=== PATIENT | female | born 1995 | race Caucasian/White ===

== ENCOUNTER 2017-06-13 16:38 | Emergency (ER) | payer BC, OTHER ==
[~2017-06-13] VITALS: Ht 160 cm; Wt 51.8 kg
[~2017-06-13 16:38] MED LIST: ASPI1TAB93; FISH120014; IRON28TA PO; PREN29TA PO; TAB-TAB PO; VITA10002 PO; VITA400C28 PO; VITACAP32
[2017-06-13 16:56] VITALS: BP 110/61; PULSE 82; RESP 16; TEMP 98.1; O2SAT 99
[2017-06-13 17:39] LABS: BLOOD, URINE NEG (NEG); GLUCOSE,URINE NEG (NEG); KETONE, URINE NEG (NEG); NITRITE,URINE NEG (NEG)
[2017-06-13 17:50] LABS: COMMENT (UR) CULT NOT INDICATED; CULTURE IF INDICATED CULT NOT INDICATED; METHOD OF COLLECTION CLEAN CATCH; SQUAMOUS EPITHELIAL CELL URINE 0-5 /hpf (0-5); URINE COLOR YELLOW (YELLW/STRAW); WBC, URINE 0-2 /hpf (0-5)
--- NOTE | 2017-06-13 18:26 | PD ---
HPI Chief Complaint: Related Problem Time Seen by Provider: 18:23 Travel History International Travel<30 days: Yes Contact w/Intl Traveler<30days: [place] Traveled to: [facility] Traveled to known affect area: No History of Present Illness HPI Patient is a 22-year-old female at approximately 3-4 weeks gestational age by last menstrual period presents emergency department for evaluation of headaches and abdominal cramping. Patient states that she found out she was and has a history of headaches and went to her primary care physician to find out what she can take for headaches. She states that she wasn't actually having any headache at the time but just wanted to know. She also discussed with her primary care physician that she had been having intermittent pelvic pain for the past 4 weeks accompanied with some vaginal spotting. Her primary care physician referred her to the emergency department for further workup. Patient states currently she feels fine and does not have any abdominal cramping or headache. She states her first period ended in miscarriage and a blighted ovum. She states she did have some vaginal bleeding a few weeks ago which is since stopped, denies any vaginal discharge currently. Denies any nausea vomiting diarrhea constipation fevers PFSH Past Medical History Medical History: Denies Significant Hx Diminished Hearing: No Influenza Vaccination: No ?: LMP: 06/02/17 Miscarriage: 1 Past Surgical History Gynecologic Surgery: Yes (LEEP) Other Surgery: Yes (WISDOM TEETH) Social History Alcohol Use: No Tobacco Use: No Substance Use: No Allergies-Medications (Allergen,Severity, Reaction): Coded Allergies: No Known Allergies (Unverified , 06/13/17) Reported Meds & Prescriptions Reported Meds & Active Scripts Active Review of Systems Except as stated in HPI: all other systems reviewed are Neg Physical Exam Narrative GENERAL: Well-developed well-nourished no obvious distress. SKIN: Focused skin assessment warm/dry. HEAD: Atraumatic. Normocephalic. EYES: Pupils equal and round. No scleral icterus. No injection or drainage. ENT: No nasal bleeding or discharge. Mucous membranes pink and moist. NECK: Trachea midline. No JVD. CARDIOVASCULAR: Regular rate and rhythm. No murmur appreciated. RESPIRATORY: No accessory muscle use. Clear to auscultation. Breath sounds equal bilaterally. GASTROINTESTINAL: Abdomen soft, non-tender, nondistended. Hepatic and splenic margins not palpable. No rebound no percussive tenderness per GENITOURINARY: Slightly friable cervix, minimal discharge considered physiologic for . Grossly normal external genitalia, no bimanual tenderness no cervical motion tenderness. MUSCULOSKELETAL: No obvious deformities. No clubbing. No cyanosis. No edema. NEUROLOGICAL: Awake and alert. No obvious cranial nerve deficits. Motor grossly within normal limits. Normal speech. PSYCHIATRIC: Appropriate mood and affect; insight and judgment normal. Data Data Last Documented VS Vital Signs Date Time Temp Pulse Resp B/P Pulse Ox O2 Delivery O2 Flow Rate FiO2 06/13/17 20:37 99 06/13/17 20:16 73 16 98/54 Room Air 06/13/17 16:56 98.1 Orders Urinalysis - C+S If Indicated (06/13/17 16:53) Ed Urine Pregnancytest Poc (06/13/17 16:53) Basic Metabolic Panel (Bmp) (06/13/17 18:23) Beta Hcg (Quant/Titer) (06/13/17 18:23) Complete Blood Count With Diff (06/13/17 18:23) Iv Access Insert/Monitor (06/13/17 18:23) Ecg Monitoring (06/13/17 18:23) Oximetry (06/13/17 18:23) Sodium Chloride 0.9% Flush (Ns Flush) (06/13/17 18:30) Abo/Rh Blood Type (06/13/17 18:23) Gc And Chlamydia Pcr (06/13/17 18:23) Wet Prep Profile (06/13/17 18:23) Us Pelvis (Ques Pr/Ect)W Trans (06/13/17 ) Labs Laboratory Tests Test 06/13/17 06/13/17 06/13/17 17:30 18:40 19:00 Urine Collection Type CLEAN CATCH Urine Color YELLOW Urine Turbidity CLEAR Urine pH 6.0 Urine Specific [place] 1.007 Urine Protein NEG mg/dL Urine Glucose (UA) NEG mg/dL Urine Ketones NEG mg/dL Urine Occult Blood NEG Urine Nitrite NEG Urine Bilirubin NEG Urine Leukocyte Esterase NEG Urine WBC 0-2 /hpf Urine Squamous Epithelial 0-5 /hpf Cells Microscopic Urinalysis Comment CULT NOT INDICATED Urine Collection Time 17:30 White Blood Count 5.6 TH/MM3 Red Blood Count 4.07 MIL/MM3 Hemoglobin 12.2 GM/DL Hematocrit 35.9 % Mean Corpuscular Volume 88.2 FL Mean Corpuscular Hemoglobin 29.8 PG Mean Corpuscular Hemoglobin 33.8 % Concent Red Cell Distribution Width 12.9 % Platelet Count 207 TH/MM3 Mean Platelet Volume 8.7 FL Neutrophils (%) (Auto) 65.9 % Lymphocytes (%) (Auto) 24.8 % Monocytes (%) (Auto) 7.1 % Eosinophils (%) (Auto) 0.9 % Basophils (%) (Auto) 1.3 % Neutrophils # (Auto) 3.6 TH/MM3 Lymphocytes # (Auto) 1.4 TH/MM3 Monocytes # (Auto) 0.4 TH/MM3 Eosinophils # (Auto) 0.1 TH/MM3 Basophils # (Auto) 0.1 TH/MM3 CBC Comment DIFF FINAL Differential Comment Sodium Level 140 MEQ/L Potassium Level 3.7 MEQ/L Chloride Level 106 MEQ/L Carbon Dioxide Level 27.0 MEQ/L Anion Gap 7 MEQ/L Blood Urea Nitrogen 8 MG/DL Creatinine 0.59 MG/DL Estimat Glomerular Filtration 125 ML/MIN Rate Random Glucose 104 MG/DL Calcium Level 7.8 MG/DL Human Chorionic Gonadotropin, [address] MIU/ML Quant Blood Type O POSITIVE Blood Bank Comment Clue Cells (Wet Prep) PRESENT Vaginal Trichomonas (Wet Prep) NONE SEEN Vaginal Yeast (Wet Prep) NONE SEEN Chlamydia trachomatis DNA NOT DETECTED (PCR) Neisseria gonorrhoeae DNA NOT DETECTED (PCR) MDM Medical Decision Making Medical Screen Exam Complete: Yes Emergency Medical Condition: Yes Differential Diagnosis Ectopic , preeclampsia highly unlikely, acute life-threatening headache unlikely, acute abdomen unlikely, vaginal spotting in , GC, CT , BV. Narrative Course Patient roomed emergency department, pelvic exam was performed with female nurse organ assembler present at all times, workup initiated, patient not currently having any symptoms. Discussed with Dr. Mancini concerns for possible ectopic . Patient care was transferred to at 1900 shift change. Follow-up basic labs and disposition appropriate. Angelo Olmos MD Jun 13, 2017 18:25
[2017-06-13] MEDS ORDERED: SODIUM CHLORIDE 0.9% FLUSH 10 ML FLUSH IV FLUSH PRN (18:30)
[2017-06-13 18:48] LABS: AUTOMATED NEUTROPHIL # 3.6 TH/MM3 (1.8-7.7); BASOPHIL # 0.1 TH/MM3 (0-0.2); BASOPHIL % 1.3 % (0.0-2.0); EOSINOPHIL # 0.1 TH/MM3 (0-0.4); EOSINOPHIL % 0.9 % (0.0-4.0); HEMATOCRIT 35.9 % (35.0-46.0); HEMO FLAGS DIFF FINAL; LYMPH % 24.8 % (9.0-44.0); LYMPHOCYTE # 1.4 TH/MM3 (1.0-4.8); MEAN CELL VOLUME 88.2 FL (80.0-100.0); MEAN CORPUSCULAR HEMOGLOBIN 29.8 PG (27.0-34.0); MEAN CORPUSCULAR HGB CONC 33.8 % (32.0-36.0); MONO % 7.1 % (0.0-8.0); NEUT % 65.9 % (16.0-70.0); PLATELET COUNT 207 TH/MM3 (150-450); RED BLOOD COUNT 4.07 MIL/MM3 (4.00-5.30); RED CELL DISTRIBUTION WIDTH 12.9 % (11.6-17.2); WHITE BLOOD COUNT 5.6 TH/MM3 (4.0-11.0)
[2017-06-13 19:08] LABS: POTASSIUM 3.7 MEQ/L (3.5-5.1)
[2017-06-13 19:14] VITALS: BP 105/71; PULSE 85; RESP 16; O2SAT 100
--- NOTE | 2017-06-13 20:09 | RADRPT ---
EXAM DATE/TIME: 06/13/2017 19:38 [place] COMPARISON: US PELVIS (QUEST PREG/ECTOPIC), May 10, 2015, 19:20. INDICATIONS : Ectopic. Bleeding. LAB(S): Beta-hC MEDICAL HISTORY : . Chlamydia. Anxiety. Blighted ovum. SURGICAL HISTORY : LEEP. [place] teeth removed ENCOUNTER: Initial ACUITY: 1 day PAIN SCORE: 0/10 LOCATION: Bilateral pelvis MEASUREMENTS: UTERUS: 7.6 x 5.9 x 5.1 cm ENDOMETRIAL STRIPE: 8 mm RIGHT OVARY: 3.5 x 1.5 x 1.6 cm LEFT OVARY: 3.7 x 3.1 x 2.0 cm FREE FLUID: Yes CROWN RUMP LENGTH: not seen FHR: not seen FINDINGS: There is a gestational sac within the uterus containing a healed sac. A pole is not seen. Based on mean sac diameter estimated gestational age of 5 weeks 6 days identified. The right ovary is norm al. The left ovary contains a 1.2 cm cyst, possibly a corpus luteum cyst. There is no blood flow with in this on color Doppler imaging. There is trace free fluid cul-de-sac. CONCLUSION: There's a gestational sac within the uterus containing a yolk sac however a pole is not seen. I t may be too early at this time and followup is recommended. Hakan Reed MD on June 13, 2017 at 20:05 Board Certified Radiologist. This report was verified electronically.
[2017-06-13 20:16] VITALS: BP 98/54; PULSE 73; RESP 16; O2SAT 100
--- NOTE | 2017-06-13 20:32 | PD ---
Data Data Last Documented VS Vital Signs Date Time Temp Pulse Resp B/P Pulse Ox O2 Delivery O2 Flow Rate FiO2 06/13/17 20:16 73 16 98/54 100 Room Air 06/13/17 16:56 98.1 Orders Urinalysis - C+S If Indicated (06/13/17 16:53) Ed Urine Pregnancytest Poc (06/13/17 16:53) Basic Metabolic Panel (Bmp) (06/13/17 18:23) Beta Hcg (Quant/Titer) (06/13/17 18:23) Complete Blood Count With Diff (06/13/17 18:23) Iv Access Insert/Monitor (06/13/17 18:23) Ecg Monitoring (06/13/17 18:23) Oximetry (06/13/17 18:23) Sodium Chloride 0.9% Flush (Ns Flush) (06/13/17 18:30) Abo/Rh Blood Type (06/13/17 18:23) Gc And Chlamydia Pcr (06/13/17 18:23) Wet Prep Profile (06/13/17 18:23) Us Pelvis (Ques Pr/Ect)W Trans (06/13/17 ) Labs Laboratory Tests Test 06/13/17 06/13/17 06/13/17 17:30 18:40 19:00 Urine Collection Type CLEAN CATCH Urine Color YELLOW Urine Turbidity CLEAR Urine pH 6.0 Urine Specific [place] 1.007 Urine Protein NEG mg/dL Urine Glucose (UA) NEG mg/dL Urine Ketones NEG mg/dL Urine Occult Blood NEG Urine Nitrite NEG Urine Bilirubin NEG Urine Leukocyte Esterase NEG Urine WBC 0-2 /hpf Urine Squamous Epithelial 0-5 /hpf Cells Microscopic Urinalysis Comment CULT NOT INDICATED Urine Collection Time 17:30 White Blood Count 5.6 TH/MM3 Red Blood Count 4.07 MIL/MM3 Hemoglobin 12.2 GM/DL Hematocrit 35.9 % Mean Corpuscular Volume 88.2 FL Mean Corpuscular Hemoglobin 29.8 PG Mean Corpuscular Hemoglobin 33.8 % Concent Red Cell Distribution Width 12.9 % Platelet Count 207 TH/MM3 Mean Platelet Volume 8.7 FL Neutrophils (%) (Auto) 65.9 % Lymphocytes (%) (Auto) 24.8 % Monocytes (%) (Auto) 7.1 % Eosinophils (%) (Auto) 0.9 % Basophils (%) (Auto) 1.3 % Neutrophils # (Auto) 3.6 TH/MM3 Lymphocytes # (Auto) 1.4 TH/MM3 Monocytes # (Auto) 0.4 TH/MM3 Eosinophils # (Auto) 0.1 TH/MM3 Basophils # (Auto) 0.1 TH/MM3 CBC Comment DIFF FINAL Differential Comment Sodium Level 140 MEQ/L Potassium Level 3.7 MEQ/L Chloride Level 106 MEQ/L Carbon Dioxide Level 27.0 MEQ/L Anion Gap 7 MEQ/L Blood Urea Nitrogen 8 MG/DL Creatinine 0.59 MG/DL Estimat Glomerular Filtration 125 ML/MIN Rate Random Glucose 104 MG/DL Calcium Level 7.8 MG/DL Human Chorionic Gonadotropin, [address] MIU/ML Quant Blood Type O POSITIVE Blood Bank Comment Clue Cells (Wet Prep) PRESENT Vaginal Trichomonas (Wet Prep) NONE SEEN Vaginal Yeast (Wet Prep) NONE SEEN MDM Supervised Visit with PAGE: Yes Narrative Course To 22 year-old woman with early who presents to the ED with some abdominal pain and headache. Patient was initially seen by Dr. Olmos been signed out to me to follow-up on the results of ultrasound and diagnostic testing. Studies show: CBC is unremarkable. CMP is unremarkable. HCG is 30,000 UA is negative. Wet prep is positive for clue cells. GC chlamydia is pending. Ultrasound shows gestational sac within the uterus containing a yolk sac without pole. FINAL: 22 old woman, has IUP excluding ectopic. No pole is seen. She did a blighted ovum before. She is not having other symptoms to suggest BV. Recommend outpatient follow-up with her OB. Diagnosis Primary Impression: Abdominal pain during intrauterine Referrals: Krystal Vargas MD (PCP) call for appointment Patient Instructions: General Instructions Departure Forms: Tests/Procedures Additional Instruction: Follow-up with your primary doctor in the next 2-4 days. Return to the emergency department for any worsening pain, bleeding, or any other new or worsening symptoms. Med/Other Pt SpecificInfo: No Change to Meds Disposition: 01 DISCHARGE HOME Condition: Stable Berny Mancini MD Jun 13, 2017 20:32
[2017-06-14 03:51] LABS: CHLAMYDIA PCR NOT DETECTED (NOT DETECT); NEISSERIA PCR NOT DETECTED (NOT DETECT)
== END 2017-06-13 21:16 | disposition home or self-care (01) ==
LOC: PHED 16:38
DX: O26.91 Pregnancy related conditions, unspecified, first trimester (principal); R10.9 Unspecified abdominal pain; Z3A.01 Less than 8 weeks gestation of pregnancy
CPT/HCPCS: 76700; 76817; 80048; 81001; 84702; 84703; 85025; 86900; 86901; 87210; 87491; 87591; 99284

== ENCOUNTER 2018-01-25 04:53 | Emergency (ER) | payer BC ==
--- NOTE | 2018-01-25 08:01 | PD ---
HPI Chief Complaint leak of fluid Date Seen: Jan 25, 2018 Time Seen: 07:54 Travel History International Travel<30 Days: No Contact w/Intl Traveler<30Days: No Known Affected Area: No History of Present Illness HPI pt. is a @ 38 weeks present w/ c/o loss of fluid. pt. states had fluid from vagina ~0000. pt. states had on pad was wet. +FM, no vb, irreg ctxs. Para: 0 : 2 History Past Medical History Medical History: Denies Significant Hx Past Surgical History Surgical History: No Previous Surgery Social History Alcohol Use: No Tobacco Use: No Substance Abuse: No Allergies-Medications (Allergen,Severity, Reaction): Coded Allergies: No Known Allergies (Unverified , 06/13/17) Review of Systems Except as stated in HPI: all other systems reviewed are Neg Physical Exam Narrative GENERAL: Well-nourished, well-developed patient. SKIN: Warm and dry. HEAD: Normocephalic and atraumatic. EYES: No scleral icterus. No injection or drainage. ENT: No nasal drainage noted. Mucous membranes pink. Airway patent. NECK: Supple, trachea midline. No JVD. CARDIOVASCULAR: Regular rate and rhythm without murmurs, gallops, or rubs. RESPIRATORY: Breath sounds equal bilaterally. No accessory muscle use. ABDOMEN/GI: Abdomen soft, non-tender, bowel sounds present, no rebound, no guarding Gravid GENITOURINARY: amniosure - FHT's: Category: 1 Reactive: + Variability: mod Decels: [none EXTREMITIES: No cyanosis or edema. BACK: Nontender without obvious deformity. No CVA tenderness. NEUROLOGICAL: Awake and alert. Motor and sensory grossly within normal limits. Five out of 5 muscle strength in all muscle groups. Normal speech. Data Data Vital Signs Reviewed: Yes [facility] Medical Record Reviewed: Yes Plan pt. w/o srom. pt. have bedside kevin=13. pt. to be d/c to home. given precautions for return. all ? answered. f/u w/ dr. darnell as scheduled. Diagnosis Diagnosis: Primary Impression: Leakage of amniotic fluid Additional Impression: 38 weeks gestation of Disposition: 01 DISCHARGE HOME Patient Instructions: General Instructions Additional Instructions: please return to ob ed for any concerns about self or baby, if you dont feel baby move or bright red vag bleeding, or water breaks. may call [phone] Departure Forms: Tests/Procedures Zbigniew Ellis Jr., MD Jan 25, 2018 08:01
[2018-01-26] MEDS ORDERED: PREN1TAB45 PO ×2 (21:40)
[2018-01-26] MEDS ORDERED: FERR325T18 PO ×2 (21:40)
[2018-01-26] MEDS ORDERED: COLA100C5 PO ×2 (21:40)
[2018-01-26] MEDS ORDERED: FAMO1TAB73 PO ×2 (21:40)
== END 2018-01-25 08:20 | disposition home or self-care (01) ==
LOC: HOBED 04:53
DX: O42.92 Full-term premature rupture of membranes, unspecified as to length of time between rupture and onset of labor (principal); Z3A.38 38 weeks gestation of pregnancy
CPT/HCPCS: 76815; 84112

== ENCOUNTER 2018-01-26 20:10 | Inpatient (IN) | payer BC ==
[~2018-01-26] VITALS: Ht 160 cm; Wt 64.4 kg
[2018-01-26] MEDS ORDERED: LACTATED RINGER'S 1000 ML INJ 1,000 ML IV PRN (21:10)
--- NOTE | 2018-01-26 21:10 | HHI.HP ---
HPI Chief Complaint Contractions Date Seen: Jan 26, 2018 Time Seen: 21:05 Travel History International Travel<30 Days: No Contact w/Intl Traveler<30Days: No Known Affected Area: No History of Present Illness HPI 22-year-old white female at [address] Avalos care presents complaining of contractions through the day. These contractions are painful and regular every 5 minutes heart rate tracing is reactive there is no bleeding or leakage of fluid. Weeks Gestation: 38 Para: 0 : 2 Miscarriage: 1 History Obstetric History Obstetric History 1 early loss Social History Alcohol Use: No Tobacco Use: No Substance Abuse: No Allergies-Medications (Allergen,Severity, Reaction): Coded Allergies: No Known Allergies (Unverified , 06/13/17) Review of Systems General / Constitutional: No: Fever, Weight Gain, Chills, Other Eyes: No: Diploplia, Blurred Vision, Visual changes, Pain, Photophobia HENT: No: Headaches, Vertigo, Lightheadedness Cardiovascular: No: Irregular Rhythm, Chest Pain or Discomfort, Palpitations, Tachycardia, Syncope, Varicosities, Edema, Cyanosis Respiratory: No: Cough, Short of Breath, Other Gastrointestinal: Abdominal Pain, No: Nausea, Vomiting, Diarrhea Genitourinary: No: Decreased Urinary Output, Oliguria Musculoskeletal: No: Limited ROM, Weakness, Cramping, Edema, Pain Skin: No Rash, No Itching, No Dryness, No Lumps, No Change in Pigmentation, No Change in Nails, No Alopecia, No Lesions Neurologic: No: Weakness, Dizziness, Syncope, Focal Abnormalities, Coordination Problem, Headache, Slurred Speech, Seizures Psychiatric: No: Depression, Suicidal Ideations, Homicidal Ideation Endocrine: No: Heat Intolerance, Cold Intolerance, Polydipsia, Polyuria, Other Physical Exam Narrative GENERAL: Well-nourished, well-developed patient. SKIN: Warm and dry. HEAD: Normocephalic and atraumatic. EYES: No scleral icterus. No injection or drainage. ENT: No nasal drainage noted. Mucous membranes pink. Airway patent. NECK: Supple, trachea midline. No JVD. CARDIOVASCULAR: Regular rate and rhythm without murmurs, gallops, or rubs. RESPIRATORY: Breath sounds equal bilaterally. No accessory muscle use. BREASTS: Bilateral exam showed no masses , no retractions, no nipple discharge. ABDOMEN/GI: Abdomen soft, non-tender, bowel sounds present, no rebound, no guarding Gravid to [38-] weeks size Fundal Height: [-38] GENITOURINARY: External Genitalia: intact and normal in appearance BUS glands: [-] Cervix: [-] Dilatation: [7-] Effacement: [90-] Station: [0] Presentation: [vtx-] Membranes: [intact BBOW] Uterine Contractions: [q 5 min-] FHT's: Category: [-1] Baseline: [133-] Reactive: [-R] Variability: [mod-] Decels: none[-] EXTREMITIES: No cyanosis or edema. BACK: Nontender without obvious deformity. No CVA tenderness. NEUROLOGICAL: Awake and alert. Motor and sensory grossly within normal limits. Five out of 5 muscle strength in all muscle groups. Normal speech. Caprini VTE Risk Assessment Caprini VTE Risk Assessment: No/Low Risk (score <= 1) Caprini Risk Assessment Model Point Value = 1 Point Value = 2 Point Value = 3 Point Value = 5 Age 41-60 Minor surgery BMI > 25 kg/m2 Swollen legs Varicose veins or History of unexplained or recurrent spontaneous Oral contraceptives or hormone replacement Sepsis (< 1 month) Serious lung disease, including pneumonia (< 1 month) Abnormal pulmonary function Acute myocardial infarction Congestive heart failure (< 1 month) History of inflammatory bowel disease Medical patient at bed rest Age 61-74 Arthroscopic surgery Major open surgery (> 45 min) Laparoscopic surgery (> 45 min) Malignancy Confined to bed (> 72 hours) Immobilizing plaster cast Central venous access Age >= 75 History of VTE Family history of VTE Factor V Leiden Prothrombin [id number] Lupus anticoagulant Anticardiolipin antibodies Elevated serum homocysteine Heparin-induced thrombocytopenia Other congenital or acquired thrombophilia Stroke (< 1 month) Elective arthroplasty Hip, pelvis, or leg fracture Acute spinal cord injury (< 1 month) Prophylaxis Regimen Total Risk Factor Score Risk Level Prophylaxis Regimen 0-1 Low Early ambulation 2 Moderate Order ONE of the following: *Sequential Compression Device (SCD) *Heparin 5000 units SQ BID 3-4 Higher Order ONE of the following medications: *Heparin 5000 units SQ TID *Enoxaparin/Lovenox 40 mg SQ daily (WT < 150 kg, CrCl > 30 mL/min) *Enoxaparin/Lovenox 30 mg SQ daily (WT < 150 kg, CrCl > 10-29 mL/min) *Enoxaparin/Lovenox 30 mg SQ BID (WT < 150 kg, CrCl > 30 mL/min) AND/OR *Sequential Compression Device (SCD) 5 or more Highest Order ONE of the following medications: *Heparin 5000 units SQ TID (Preferred with Epidurals) *Enoxaparin/Lovenox 40 mg SQ daily (WT < 150 kg, CrCl > 30 mL/min) *Enoxaparin/Lovenox 30 mg SQ daily (WT < 150 kg, CrCl > 10-29 mL/min) *Enoxaparin/Lovenox 30 mg SQ BID (WT < 150 kg, CrCl > 30 mL/min) AND *Sequential Compression Device (SCD) Assessment/Plan Assessment and Plan Patient is 22-year-old white female at [address] Avalos care presents complaining of regular contractions. Cervix is 7 cm/90%/0 station Impression-active labor at 38 weeks Plan-admit to labor and delivery, managed labor, anticipate vaginal delivery, discussed with the Dr. Aparicio covering physician Aiden Siu II, MD Jan 26, 2018 21:10
[2018-01-26] MEDS ORDERED: CITRIC ACID-SODIUM CITRATE LIQ 30 ML UDC PO SCH (21:15)
[2018-01-26] MEDS ORDERED: MINERAL OIL 10 ML VIAL TOPICAL PRN (21:15)
[2018-01-26] MEDS ORDERED: SODIUM CHLORID 0.9% 500 ML INJ 500 ML IV PRN (21:15)
[2018-01-26] MEDS ORDERED: LIDOCAINE HCL 1% 50 ML VIAL INFIL PRN (21:15)
[2018-01-26] MEDS ORDERED: OXYTOCIN 30 UNITS-500ML PREMIX 500 ML IV ONE (21:15)
[2018-01-26] MEDS ORDERED: LIDOCAINE HCL 1% 50 ML VIAL I-DERMAL PRN (21:15)
[2018-01-26] MEDS ORDERED: SODIUM CHLOR 0.9% 1000 ML INJ 1,000 ML IV PRN (21:30)
[2018-01-26 21:39] LABS: AUTOMATED NEUTROPHIL # 9.9 TH/MM3 (1.8-7.7); BASOPHIL % 0.2 % (0.0-2.0); EOSINOPHIL % 0.1 % (0.0-4.0); HEMATOCRIT 37.1 % (35.0-46.0); HEMOGLOBIN 13.3 GM/DL (11.6-15.3); LYMPH % 7.9 % (9.0-44.0); LYMPHOCYTE # 0.9 TH/MM3 (1.0-4.8); MEAN CELL VOLUME 92.1 FL (80.0-100.0); MEAN CORPUSCULAR HGB CONC 35.8 % (32.0-36.0); MEAN PLATELET VOLUME 9.6 FL (7.0-11.0); MONOCYTE # 0.6 TH/MM3 (0-0.9); NEUT % 86.8 % (16.0-70.0); PLATELET COUNT 157 TH/MM3 (150-450); RED BLOOD COUNT 4.02 MIL/MM3 (4.00-5.30); RED CELL DISTRIBUTION WIDTH 14.6 % (11.6-17.2); WHITE BLOOD COUNT 11.5 TH/MM3 (4.0-11.0)
[2018-01-26] MEDS ORDERED: FAMO1TAB73 PO ×2 (21:40)
[2018-01-26] MEDS ORDERED: FERR325T18 PO ×2 (21:40)
[2018-01-26] MEDS ORDERED: PREN1TAB45 PO ×2 (21:40)
[2018-01-26] MEDS ORDERED: COLA100C5 PO ×2 (21:40)
[2018-01-26 21:41] LABS: BILIRUBIN, URINE NEG (NEG); BLOOD, URINE SMALL (NEG); GLUCOSE,URINE NEG (NEG); KETONE, URINE 10 mg/dL (NEG); MUCUS URINE FEW /lpf (OCC); NITRITE,URINE NEG (NEG); SQUAMOUS EPITHELIAL CELL URINE 2 /hpf (0-5); URINE COLOR YELLOW (YELLW/STRAW); URINE LEUKOCYTE ESTERASE MOD (NEG)
[2018-01-26] MEDS: LACTATED RINGER'S 1000 ML INJ 1,000 ML IV SCH (21:53)
[2018-01-26] MEDS ORDERED: ALUMINUM/MAGNESIUM/SIMETH 30 ML CUP PO PRN (22:30)
[2018-01-26] MEDS ORDERED: LIDOCAINE HCL 1% 20 ML VIAL ONE (22:51)
[2018-01-27] VITALS (7 sets, daily range): BP systolic 90–131; BP diastolic 47–103; PULSE 97–126; RESP 17–18; TEMP 98.5
[2018-01-27] MEDS ORDERED: WITCH HAZEL 50%/GLYCERIN 12.5% 40 PAD JAR TOPICAL PRN (01:15)
[2018-01-27] MEDS ORDERED: DOCUSATE SODIUM 50 MG/SENNA 8.6 MG TAB PO PRN (01:15)
[2018-01-27] MEDS ORDERED: ALUMINUM/MAGNESIUM/SIMETH 30 ML CUP PO PRN (01:15)
[2018-01-27] MEDS ORDERED: BENZOCAINE 20% TOPICAL SPRAY 60 ML CAN TOPICAL PRN (01:15)
[2018-01-27] MEDS ORDERED: OXYTOCIN 10 UNIT/ML AMP XX PRN (01:15)
[2018-01-27] MEDS ORDERED: ZOLPIDEM TARTRATE 5 MG TAB PO PRN (01:15)
[2018-01-27] MEDS ORDERED: OXYTOCIN 30 UNITS-500ML PREMIX 500 ML IV SCH (01:15)
[2018-01-27] MEDS ORDERED: ONDANSETRON ODT 4 MG TAB PO PRN (01:15)
[2018-01-27] MEDS ORDERED: ACETAMINOPHEN 325 MG TAB PO PRN (01:15)
[2018-01-27] MEDS ORDERED: SODIUM CHLORIDE 0.9% FLUSH 10 ML FLUSH IV FLUSH PRN (01:15)
--- NOTE | 2018-01-27 01:17 | PD.OB.DELI ---
Weeks gestation: 38 Gest age assessed date: Jan 26, 2018 Gest age assessed time: 20:00 Pt started active labor?: Yes Active labor start date: Jan 26, 2018 Active labor start time: 17:00 Medical induction of labor?: No Artificial rupture of membrane: Yes Artificial ROM date: Jan 26, 2018 Artifical ROM time: 19:20 Anesthesia: None Episiotomy: None Vaginal Delivery: Normal Presentation: Occiput anterior Nuchal Cord: None Delayed cord clamping (45 sec): Yes : Female Delivery date: Jan 27, 2018 Delivery time: 00:51 One Minute : 8 Five Minute : 9 Weight: 2965 Placenta: Spontaneous delivery Laceration: Vaginal laceration, 2 deg Repair: Vicryl running (layered closure, 3-0,2-0) Estimated blood loss: 250cc Berny Aparicio MD Jan 27, 2018 01:17
[2018-01-27] MEDS: SODIUM CHLORIDE 0.9% FLUSH 10 ML FLUSH IV FLUSH SCH ×2 (01:38→09:21)
[2018-01-27] MEDS: IBUPROFEN 800 MG TAB PO PRN ×3 (01:43→17:33)
[2018-01-27] MEDS ORDERED: INFLUENZA VIRUS VACCINE (QUADRIVALENT) 0.5 ML SYR IM ONE (10:00)
[2018-01-27] MEDS: LACTATED RINGER'S 1000 ML INJ 1,000 ML IV SCH (11:58)
--- NOTE | 2018-01-27 12:26 | HHI.OB ---
Subjective Post Day: 1 Remarks PPD#1, ,attempting to breast feed. Stable Objective Vitals/I&O Vital Signs Date Time Temp Pulse Resp B/P (MAP) Pulse Ox O2 Delivery O2 Flow Rate FiO2 01/27/18 02:00 103 115/87 (96) 01/27/18 01:45 97 105/64 (78) 01/27/18 01:42 98.5 01/27/18 01:41 17 01/27/18 01:31 126 90/47 (61) 01/27/18 01:16 97 112/71 (85) 01/27/18 01:00 108 18 131/103 (112) Objective Remarks GENERAL: Well-nourished, well-developed patient. CARDIOVASCULAR: Regular rate and rhythm without murmurs, gallops, or rubs. RESPIRATORY: Breath sounds equal bilaterally. No accessory muscle use. ABDOMEN/GI: Abdomen soft, non-tender. Fundus: Firm, non-tender at umbilicus. GENITOURINARY: Light to moderate bleeding. EXTREMITIES: No cyanosis or edema, non-tender, without signs of DVT. Medications and IVs Current Medications Medications (Trade) Dose Ordered Sig/Juancho Route Start Time Stop Time Status Last Admin Lactated Ringer's 1,000 ml @ 125 mls/hr Q8H IV 01/26/18 21:10 01/26/18 21:53 Lactated Ringer's 1,000 ml @ 3,000 mls/hr Q20M PRN IV 01/26/18 21:10 Sodium Chloride 1,000 ml @ 100 mls/hr Q10H PRN IV 01/26/18 21:30 (Xylocaine 1% Inj (50 ml)) 0.1 ml UNSCH X1 PRN I-DERMAL 01/26/18 21:15 01/29/18 21:14 (Bicitra Liq) 30 ml HOTEL VALET ATTENDANT PO 01/26/18 21:15 01/30/18 21:14 (fentaNYL INJ) 50 mcg Q1H PRN IV PUSH 01/26/18 21:15 (fentaNYL INJ) 100 mcg Q1H PRN IV PUSH 01/26/18 21:15 (Xylocaine 1% Inj (50 ml)) 10 ml UNSCH X1 PRN INFIL 01/26/18 21:15 01/28/18 21:14 (Muri-Lube Oil) 10 ml UNSCH PRN TOPICAL 01/26/18 21:15 (Mag-Al Plus Susp Liq) 30 ml Q6H PRN PO 01/26/18 22:30 01/26/18 22:24 (Pitocin Inj) 20 units UNSCH X1 PRN XX 01/27/18 01:15 01/28/18 01:14 (NS Flush) 2 ml BID IV FLUSH 01/27/18 01:15 01/27/18 01:38 (NS Flush) 2 ml UNSCH PRN IV FLUSH 01/27/18 01:15 (Tylenol) 650 mg Q4H PRN PO 01/27/18 01:15 (Motrin) 800 mg Q8H PRN PO 01/27/18 01:15 01/27/18 09:22 (Americaine 20% Top Spr) 1 spray Q4H PRN TOPICAL 01/27/18 01:15 01/27/18 03:21 (Tucks Pads) 1 applic QID PRN TOPICAL 01/27/18 01:15 01/27/18 03:21 (Kelly-Colace) 2 tab Q12H PRN PO 01/27/18 01:15 (Ambien) 5 mg HS PRN PO 01/27/18 01:15 (M-M-R Ii Inj) 0.5 ml ONCE ONCE SQ 01/27/18 16:00 01/27/18 16:01 (Boostrix Inj) 0.5 ml ONCE ONCE IM 01/27/18 16:00 01/27/18 16:01 (Mag-Al Plus Susp Liq) 15 ml Q8H PRN PO 01/27/18 01:15 (Zofran Odt) 4 mg Q6H PRN PO 01/27/18 01:15 Assessment/Plan Assessment and Plan PPD#1, Stable, transitioning well. plan discharge for tomorrow Discharge Planning routine for tomorrow Attending Attestation seen by Berny Doe MD Jan 27, 2018 12:26
--- NOTE | 2018-01-27 12:27 | HHI.DS ---
Admission Date Jan 26, 2018 at 21:10 Admitting Diagnosis Diagnosis: Delivery Date: Jan 27, 2018 Vaginal Delivery: Normal : Female Brief History 22-year-old white female at [address] Avalos care presents complaining of contractions through the day. These contractions are painful and regular every 5 minutes heart rate tracing is reactive there is no bleeding or leakage of fluid. Pt Condition on Discharge: Good Discharge Disposition: Discharge Home Discharge Instructions Diet Instructions: As Tolerated, No Restrictions Activities You Can Perform: Shower Only-No Bath Activities to Avoid: Driving for 24 hrs, Prolonged Standing, Strenuous Activity , Sexual Activity Berny Aparicio MD Jan 27, 2018 12:27
[2018-01-27] MEDS ORDERED: MEASLES, MUMPS, RUBELLA VACCINE 0.5 ML VIAL SQ ONE (16:00)
[2018-01-27] MEDS ORDERED: DIPHTH/TETANUS/ACEL PERTUSSIS (BOOSTER) 0.5 ML VIAL/PFS IM ONE (16:00)
[2018-01-28] MEDS: IBUPROFEN 800 MG TAB PO PRN ×2 (01:50→09:57)
[2018-01-28] MEDS: SODIUM CHLORIDE 0.9% FLUSH 10 ML FLUSH IV FLUSH SCH (09:00)
--- NOTE | 2018-01-28 11:27 | HHI.OB ---
Subjective Post Day: 2 Remarks PPD#2, Stable, plan discharge to home Objective Objective Remarks GENERAL: Well-nourished, well-developed patient. CARDIOVASCULAR: Regular rate and rhythm without murmurs, gallops, or rubs. RESPIRATORY: Breath sounds equal bilaterally. No accessory muscle use. ABDOMEN/GI: Abdomen soft, non-tender. Fundus: Firm, non-tender at umbilicus. GENITOURINARY: Light to moderate bleeding. EXTREMITIES: No cyanosis or edema, non-tender, without signs of DVT. Medications and IVs Current Medications Medications (Trade) Dose Ordered Sig/Juancho Route Start Time Stop Time Status Last Admin Lactated Ringer's 1,000 ml @ 125 mls/hr Q8H IV 01/26/18 21:10 01/26/18 21:53 Lactated Ringer's 1,000 ml @ 3,000 mls/hr Q20M PRN IV 01/26/18 21:10 Sodium Chloride 1,000 ml @ 100 mls/hr Q10H PRN IV 01/26/18 21:30 (Xylocaine 1% Inj (50 ml)) 0.1 ml UNSCH X1 PRN I-DERMAL 01/26/18 21:15 01/29/18 21:14 (Bicitra Liq) 30 ml TRACKLESS TROLLEY DRIVER PO 01/26/18 21:15 01/30/18 21:14 (fentaNYL INJ) 50 mcg Q1H PRN IV PUSH 01/26/18 21:15 (fentaNYL INJ) 100 mcg Q1H PRN IV PUSH 01/26/18 21:15 (Xylocaine 1% Inj (50 ml)) 10 ml UNSCH X1 PRN INFIL 01/26/18 21:15 01/28/18 21:14 (Muri-Lube Oil) 10 ml UNSCH PRN TOPICAL 01/26/18 21:15 (Mag-Al Plus Susp Liq) 30 ml Q6H PRN PO 01/26/18 22:30 01/26/18 22:24 (NS Flush) 2 ml BID IV FLUSH 01/27/18 01:15 01/27/18 01:38 (NS Flush) 2 ml UNSCH PRN IV FLUSH 01/27/18 01:15 (Tylenol) 650 mg Q4H PRN PO 01/27/18 01:15 (Motrin) 800 mg Q8H PRN PO 01/27/18 01:15 01/28/18 09:57 (Americaine 20% Top Spr) 1 spray Q4H PRN TOPICAL 01/27/18 01:15 01/27/18 03:21 (Tucks Pads) 1 applic QID PRN TOPICAL 01/27/18 01:15 01/27/18 03:21 (Kelly-Colace) 2 tab Q12H PRN PO 01/27/18 01:15 (Ambien) 5 mg HS PRN PO 01/27/18 01:15 (Mag-Al Plus Susp Liq) 15 ml Q8H PRN PO 01/27/18 01:15 (Zofran Odt) 4 mg Q6H PRN PO 01/27/18 01:15 Assessment/Plan Assessment and Plan PPD#2, Stable, transitioning well. plan discharge for today Discharge Planning routine Attending Attestation seen by Berny Doe MD Jan 28, 2018 11:27
== END 2018-01-28 14:29 | disposition home or self-care (01) | DRG 775 ==
LOC: HOBED 20:10 → H2EB 21:10 → H1EA 01-27 02:53
PROVIDERS: ADMIT Obstetrics & Gynecology; ATTEND Obstetrics & Gynecology
PROC: 10907ZC Drainage of Amniotic Fluid, Therapeutic from Products of Conception, Via Natural or Artificial Opening (ICD-10-PCS; 2018-01-26)
PROC: 10E0XZZ Delivery of Products of Conception, External Approach (ICD-10-PCS; principal; 2018-01-27)
PROC: 0KQM0ZZ Repair Perineum Muscle, Open Approach (ICD-10-PCS; 2018-01-27)
DX: O71.4 Obstetric high vaginal laceration alone (principal); Z37.0 Single live birth; O42.92 Full-term premature rupture of membranes, unspecified as to length of time between rupture and onset of labor; Z3A.38 38 weeks gestation of pregnancy
CPT/HCPCS: 59025; 76815; 80307; 81001; 84112; 85025; 86850; 86900; 86901; G0481; J2590; J7120